=== PATIENT | female | born 1990 | race Caucasian/White ===

== ENCOUNTER 2024-06-18 12:15 | Emergency (ER) | payer OTHER, SELFPAY ==
[2024-06-18 12:19] VITALS: BP 144/101
[2024-06-18 12:41] LABS: % Basophils 0.7 % (0-2); % Eosinophils 4.7 % (0-6); % Immature Granulocytes 0.2 % (0-0.5); % Lymphocytes 27.1 % (20.5-51.1); % Neutrophils 60.3 % (42.2-75.2); Absolute Basophils 0.1 10^3/uL (0-0.2); Absolute Eosinophils 0.6 10^3/uL (0-0.7); Absolute Lymphocytes 3.3 10^3/uL (1.2-3.4); Absolute Monocytes 0.9 10^3/uL (0.1-0.6); Absolute Neutrophils 7.3 10^3/uL (1.4-6.5); Hemoglobin 13.7 g/dL (12.0-16.0); Mean Corp Hgb Conc. 33.4 g/dL (33.0-37.0); Mean Corpuscular Hgb 29.3 pg (27.0-31.0); Mean Corpuscular Volume 87.8 fL (81.0-99.0); Mean Platelet Volume 11.4 fL (7.4-10.4); Nucleated Red Blood Cells % 0 %; Platelet Count 319 10^3/uL (130-400); Red Blood Cell Count 4.67 10^6/uL (4.20-5.40); Red Cell Dist. Width 13.1 % (11.5-14.5); White Blood Cell Count 12.2 10^3/uL (4.8-10.8)
[2024-06-18 13:03] LABS: ALT (SGPT) 14 U/L (0-35); AST (SGOT) 19 U/L (14-36); Albumin 4.5 g/dl (3.5-5.0); Alkaline Phosphatase 43 U/L (38-126); Blood Urea Nitrogen 17 mg/dl (7-17); Calcium 9.6 mg/dl (8.4-10.2); Carbon Dioxide 28 mmol/L (22-30); Chloride 101 mmol/L (98-107); Glucose 96 mg/dl (70-99); Sodium 140 mmol/L (135-145); Total Bilirubin 0.7 mg/dl (0.2-1.3); Total Protein 7.9 g/dl (6.3-8.2); eGFR > 60.00
[2024-06-18 13:11] LABS: HCG, Serum Qualitative Screen Negative
--- NOTE | 2024-06-18 14:40 | ED.GENMED ---
History of Present Illness
General
Chief Complaint: Blood Pressure Problem
Source: patient
Exam Limitations: none
Time Seen by Provider: 06/18/24 14:35
History of Present Illness
History of Present Illness:
33yoF with a history of hypothyroidism presenting for evaluation of dizziness. Patient has had intermittent episodes of dizziness over the past week or so. Symptoms tend to occur at nighttime when she rolls over in bed. She states it feels like
the room is spinning and that she is on a ship. Symptoms last several seconds before resolving. Patient was at work this afternoon. She was eating lunch and about 30 minutes later, started to feel dizzy again like the room was spinning. She also
felt like she had to pass out. She went to the school nurse and her blood pressure was elevated at 150s/110s and she was sent to the ED for evaluation. Patient is currently feeling much better. She denies any headache, visual changes, vomiting,
weakness, paresthesias, chest pain, shortness of breath, ear pain, tinnitus, hearing loss.
Past History
Past History
ED Past Medical History: None
ED Past Surgical History: None
Social History
Living: with family
Phy Exam
General Physical Exam
General Presentation: well appearing and no apparent distress
General age: appears stated age
General Skin: warm and dry
General Habitus: normal
General Mental: alert
ENT Exam
ENT Exam: TM's normal and normocephalic
Eye Exam
Eye Exam: PERRL, EOMI and conjunctiva normal
Cardiovascular Exam
Cardiovascular Exam: regular rate/rhythm and no murmur
Pulmonary Exam
Pulmonary Exam: lungs clear, no respiratory distress, no rales, no crackles, no rhonchi and no wheezing
Neurological Exam
Neurological Exam: alert, speech normal and other (Normal finger to nose and heel to jin bilaterally)
[place] Coma Scale
Eye Opening: Spontaneous
Verbal Response: Oriented
Motor Response: Obeys Commands
GCS Total Score: 15
Skin Exam
Skin Exam: normal color and warm/dry
Psychiatric Exam
Psychiatric Exam: normal mood/affect
Course
Orders/Labs/Results
Orders:
Orders
06/18/24 12:22
Electrocardiogram (*1) Urgent
Reason for Study: Hypertension, Benign
06/18/24 12:23
EKG- Treatment ONCE
Test Result ONCE
06/18/24 12:33
Complete Blood Count/With Diff Urgent
Comprehensive Metabolic Panel Urgent
HCG, Serum Qualitative Screen Urgent
06/18/24 14:51
Orthostatic VS- Treatment ONCE
0.9% Sodium Chloride 1000 ml [Nss] 1,000 ml IV BOLUS
Pt Eval And Treat Urgent
Treatment: vestibular eval
Activity Level: Out of Bed- Ad Lashanda
Abnormal Lab Results
06/18/24
12:33
WBC 12.2 H 10^3/uL
(4.8-10.8)
MPV 11.4 H fL
(7.4-10.4)
Absolute Neuts (auto) 7.3 H 10^3/uL
(1.4-6.5)
Absolute Monos (auto) 0.9 H 10^3/uL
(0.1-0.6)
Creatinine 1.1 H mg/dL
(0.6-1.0)
06/18/24 12:33
06/18/24 12:33
Vital Signs
Initial and Last Documented VS:
Initial Vital Signs
Temp Pulse Resp BP Pulse Ox
98.4 F 104 18 144/101 99
06/18/24 12:19 06/18/24 12:19 06/18/24 12:19 06/18/24 12:19 06/18/24 12:19
Last Documented Vital Signs
Temp Pulse Resp BP Pulse Ox
98.1 F 78 16 125/79 100
06/18/24 17:15 06/18/24 17:15 06/18/24 17:15 06/18/24 17:15 06/18/24 17:15
MDM/Problems Addressed
Differential Diagnosis Includes:
33yoF here with dizziness. Intermittent episodes of dizziness x 1 week. Feels like room is spinning. Lasts a few seconds before resolving. Occurs after head movement. Had a severe episode earlier today and BP was elevated. Currently asymptomatic. BP
144/101 in triage. She is well-appearing no acute distress. Exam reassuring. No nystagmus or ataxia noted. Differential diagnosis includes but is not limited to: BPPV, vestibular neuronitis, orthostatic hypotension
Initial ED plan: Labs and EKG obtained in triage. EKG shows normal sinus rhythm without ischemic changes or ectopy. Labs overall unremarkable. Will check orthostatic vital signs and have PT evaluate patient. IV fluid bolus.
*EKG
Interpreted by ED Provider?: Yes
EKG Intrepretation Date: 06/18/24
Heart Rate: 80
Rate: normal
Rhythm: sinus
[place]: normal axis
Interval: normal interval
QRS Pattern: normal QRS
Ischemia: no ischemia
*Critical Care Note
Total Time (30-74mins, 75-104mins- exclusive of procedures): Not Applicable
Update Note
Update Note:
Orthostatic vital signs are negative. Patient was evaluated by physical therapy and Rodney-Hallpike maneuver was positive on the right consistent with BPPV. On reassessment, patient remains asymptomatic. BP improved to 125/79 without intervention.
No indication for hospitalization. Prescription given for meclizine and prescription given for outpatient vestibular therapy. Advised follow-up with PCP and ED return precautions discussed. Patient in agreement with plan and was discharged in
stable condition.
ED Attending Note
-
Portions of this chart may have been created with voice recognition software.� Occasional wrong word or��sound alike� substitutions may have occurred due to the inherent limitations of voice recognition software.
Discharge Plan
Departure
Patient Disposition: Home (Routine Discharge)
Date of Disposition: 06/18/24
Time of Disposition: 16:32
Patient with high blood pressure during this ER visit?: Yes
Discharge Problem:
Vertigo
Instructions: Vertigo - ED discharge instructions
Prescriptions:
New
meclizine 25 mg tablet
25 mg PO TID PRN (Reason: dizziness) Qty: 20 0RF
No Action
levothyroxine 25 MCG tablet
25 mcg PO DAILY
dextroamphetamine-amphetamine [Adderall] 30 MG tablet
30 mg PO DAILY
Referrals:
NONE,* [Family Provider] -
Activity Restrictions/Additional Instructions:
Take meclizine as needed for dizziness.
Please call to schedule a follow-up your family doctor and vestibular therapy. Return to the ER with any new or worsening symptoms.
Interventions
Interventions:
*Risk Screen - Suicide Last Done: 06/18/24 12:19
*General Assessment Last Done: 06/18/24 12:19
*Neglect/Abuse Screening Last Done: 06/18/24 12:19
*ED- Fall Risk Assessment Last Done: 06/18/24 15:32
*ED COVID-19 Vaccine History Last Done: 06/18/24 15:32
*Nursing Disposition Last Done: 06/18/24 17:15
ED- Cardiac Assessment Last Done: 06/18/24 15:32
ED- Neurological Assessment Last Done: 06/18/24 15:32
ED- Pulmonary Assessment Last Done: 06/18/24 15:32
Discharge Date and Time
Discharge Date/Time: 06/18/24 17:16
Print Language: INDONESIAN
[2024-06-18 15:28] VITALS: BP 130/92; BP 131/91; BP 137/98; PULSE 105; PULSE 77; PULSE 92
[2024-06-18 15:30] VITALS: BP 131/91
[2024-06-18 15:32] VITALS: BMI 36.0
[2024-06-18] MEDS: NSS 1000 IV (15:45)
--- NOTE | 2024-06-18 17:14 | EDRN ---
REviewed discharge instructions with patient. Verbalized understanding. Ambulated with steady gait to the lobby.
[2024-06-18 17:15] VITALS: BP 125/79
== END 2024-06-18 17:16 | disposition home or self-care (01) ==
LOC: EMR 12:15
PROVIDERS: Emergency Medicine; EMERGENCY PHYSICIAN Emergency Medicine
DX: R42 Dizziness and giddiness (principal); E03.9 Hypothyroidism, unspecified; I10 Essential (primary) hypertension
CPT/HCPCS: 99283; 96360; 80053; 84703; 85025; 93005